=== PATIENT | female | born 1970 | race Caucasian/White ===

== ENCOUNTER 2024-06-18 16:32 | Emergency (ER) | payer BC, MEDICAID ==
[~2024-06-18] VITALS: Ht 154.9 cm; Wt 61.2 kg
[2024-06-18 16:38] VITALS: O2SAT 99
[2024-06-18] MEDS ORDERED: ACETAMINOPHEN 500 MG TABLET ONE (16:53)
[2024-06-18] MEDS ORDERED: IBUPROFEN 400 MG TABLET ONE (16:53)
[2024-06-18] MEDS: IBUPROFEN 400 MG TABLET PO ONE (16:56)
[2024-06-18] MEDS: ACETAMINOPHEN 500 MG TABLET PO ONE (16:56)
[2024-06-18] MEDS: LIDOCAINE 5% PATCH TD ONE (18:15)
== END 2024-06-18 18:19 | disposition home or self-care (01) ==
LOC: ER 16:34
DX: M54.50 Low back pain, unspecified (principal); Z88.0 Allergy status to penicillin; Z88.5 Allergy status to narcotic agent
CPT/HCPCS: A4606; A4663; A9150

== ENCOUNTER 2025-05-03 16:33 | Emergency (ER) | payer MEDICAID, OTHER ==
[~2025-05-03] VITALS: Ht 154.9 cm; Wt 59.0 kg
[~2025-05-03 16:33] MED LIST: CEFD300C3 PO; PHEN-705 PO
[2025-05-03] MEDS ORDERED: KETOROLAC TROMETHAMINE 15 MG INJ ONE (17:58)
[2025-05-03] MEDS ORDERED: METOCLOPRAMIDE HCL 10 MG/2 ML VIAL ONE (17:58)
[2025-05-03] MEDS: METOCLOPRAMIDE HCL 10 MG/2 ML VIAL IV ONE (17:59)
[2025-05-03] MEDS: KETOROLAC TROMETHAMINE 15 MG INJ IVP ONE (17:59)
[2025-05-03 18:04] LABS: BASOPHILS # (AUTO) 0.1 K/UL (0.0-0.2); BASOPHILS % (AUTO) 0.9 % (0.0-2.0); EOSINOPHILS # (AUTO) 0.4 K/uL (0.0-0.7); EOSINOPHILS % (AUTO) 5.5 % (0.0-7.0); HEMATOCRIT 37.5 % (31.2-41.9); HEMOGLOBIN 12.5 g/dL (10.9-14.3); LYMPHOCYTES # (AUTO) 2.2 K/uL (0.8-4.8); LYMPHOCYTES % (AUTO) 33.4 % (20.5-51.5); MEAN CORPUSCULAR HEMOGLOBIN 29.8 uug (24.7-32.8); MEAN CORPUSCULAR HGB CONC 33 g/dL (32.3-35.6); MEAN CORPUSCULAR VOLUME 89.3 fL (75.5-95.3); MONOCYTES # (AUTO) 0.5 K/uL (0.1-1.30); MONOCYTES % (AUTO) 7.3 % (0.0-11.0); NEUTROPHILS # (AUTO) 3.5 K/uL (1.8-8.9); NEUTROPHILS % (AUTO) 52.9 % (38.5-71.5); PLATELET COUNT (AUTO) 270 K/uL (179-408); RED CELL DISTRIBUTION WIDTH 13.1 % (12.3-17.7); WHITE BLOOD COUNT (AUTO) 6.6 K/uL (3.8-11.8)
[2025-05-03 18:10] LABS: CALCIUM 9.3 mg/dL (8.5-10.1); CARBON DIOXIDE 27 mmol/L (21-32); CHLORIDE 105 mmol/L (98-107); CREATININE 1.1 mg/dL (0.6-1.3); GLUCOSE 103 mg/dL (74-106); SODIUM SERUM 141 mmol/L (136-145); UREA NITROGEN, BLOOD 25 mg/dL (7-18)
[2025-05-03 18:12] LABS: DIFFERENTIAL COMMENT 1
[2025-05-03 18:38] LABS: ERYTHROCYTE SEDIMENTATION RATE < 1 MM/HR (0-20)
[2025-05-03] MEDS ORDERED: NABU-140 PO (18:46)
[2025-05-03] MEDS ORDERED: DEXAMETHASONE SOD PHOSPHATE 10 MG INJ ONE (18:57)
[2025-05-03] MEDS: DEXAMETHASONE SOD PHOSPHATE 4 MG INJ IV ONE (18:58)
[2025-05-03 19:08] VITALS: BP 112/70; TEMP 97.6; O2SAT 96
== END 2025-05-03 19:09 | disposition home or self-care (01) ==
LOC: ER 16:33
DX: G44.86 Cervicogenic headache (principal); F17.290 Nicotine dependence, other tobacco product, uncomplicated; Z85.528 Personal history of other malignant neoplasm of kidney; Z79.899 Other long term (current) drug therapy; Z90.5 Acquired absence of kidney; Z88.0 Allergy status to penicillin; Z88.5 Allergy status to narcotic agent
CPT/HCPCS: 99285; 70450; 96374; 96375; 80048; 85025; 85651; 85730; 84484; 36415; 72125; J1885; J1100; J2765; A4606; A4663

== ENCOUNTER 2025-05-23 15:42 | Emergency (ER) | payer MEDICAID ==
[~2025-05-23] VITALS: Ht 154.9 cm; Wt 61.2 kg
[~2025-05-23 15:42] MED LIST changes: +NABU-140 PO
[2025-05-23 16:17] LABS: *BILIRUBIN,URIN NEGATIVE (NEGATIVE); *BLOOD, URINE NEGATIVE (NEGATIVE); *CLARITY,URINE CLEAR (CLEAR); *COLOR,URINE YELLOW (YELLOW); *KETONES,URINE NEGATIVE (NEGATIVE); *PROTEIN,URINE NEGATIVE (NEGATIVE); *UROBILINOGEN,URINE 0.2 E.U./dl (NORMAL); LEUKOCYTE ESTERASE ,URINE 1+ (NEGATIVE); NITRITE, URINE NEGATIVE (NEGATIVE); UGLUCOSE NEGATIVE (NEGATIVE)
[2025-05-23 16:30] LABS: SQUAMOUS EPITHELIAL CELL,UR FEW /HPF (NONE SEEN)
[2025-05-23] MEDS ORDERED: CEFD300C3 PO (17:08)
[2025-05-23] MEDS ORDERED: METR500T PO (17:35)
[2025-05-23] MEDS ORDERED: PHEN-705 PO (17:35)
[2025-05-23 17:44] VITALS: BP 100/65; TEMP 98.6; O2SAT 100
== END 2025-05-23 17:46 | disposition home or self-care (01) ==
LOC: ER 15:58
DX: N39.0 Urinary tract infection, site not specified (principal); N76.0 Acute vaginitis; B96.89 Other specified bacterial agents as the cause of diseases classified elsewhere; F17.290 Nicotine dependence, other tobacco product, uncomplicated; Z85.528 Personal history of other malignant neoplasm of kidney; Z87.440 Personal history of urinary (tract) infections; Z88.0 Allergy status to penicillin; Z88.5 Allergy status to narcotic agent
CPT/HCPCS: 87086; 87210; 87491; 87591; A4606; A4663

== ENCOUNTER 2025-07-09 16:03 | Emergency (ER) | payer MEDICAID, OTHER ==
[~2025-07-09] VITALS: Ht 154.9 cm; Wt 59.0 kg
[~2025-07-09 16:03] MED LIST changes: +METR500T PO
[2025-07-09 16:20] VITALS: BP 92/70
[2025-07-09] MEDS ORDERED: DEXAMETHASONE SOD PHOSPHATE 4 MG INJ ONE (16:27)
[2025-07-09] MEDS: DEXAMETHASONE SOD PHOSPHATE 4 MG INJ IM ONE (16:30)
[2025-07-09 16:42] VITALS: BP 92/70; TEMP 97.5; O2SAT 98
== END 2025-07-09 16:50 | disposition home or self-care (01) ==
LOC: ER 16:09
DX: T78.40XA Allergy, unspecified, initial encounter (principal); L29.9 Pruritus, unspecified; F17.290 Nicotine dependence, other tobacco product, uncomplicated; Z85.528 Personal history of other malignant neoplasm of kidney; Z88.0 Allergy status to penicillin; Z88.5 Allergy status to narcotic agent; X58.XXXA Exposure to other specified factors, initial encounter
CPT/HCPCS: 99283; 96372; Q0163; J1100; A4606; A4663